=== PATIENT | female | born 1940 | race Caucasian/White ===

== ENCOUNTER → 2016-12-08 | Outpatient (CLI) | payer OTHER ==
[~2016-12-08] MED LIST: IOPAMIDOL (ISOVUE-300) 50 ML VIAL IV ONE
--- NOTE | 2016-12-08 12:01 | CT ---
CT Scan of the Abdomen (With Contrast) 1123 hours History: Intermittent right upper quadrant discomfort. Elevated lipase. Possible pancreatitis. Technique: Axial computed tomographic images of the abdomen were obtained with the uneventful intrave nous administration of 80 mL Isovue-300 contrast. Images were reviewed in multiple planes. Dose reduc tion techniques were utilized. Comparison prior CT study of August 29, 2014. CT Abdomen Findings: Lung bases: Fibrotic band or subsegmental atelectasis is noted in the right middle lobe and lingula. The lung bases are otherwise clear. Liver: Normal. Spleen: Normal. Gallbladder and Bile Ducts: There is some distention of the bile duct measuring 11 mm at the level o f the jose and tapering to 6 mm at the pancreatic head level. Mild intrahepatic biliary ductal dilat ation is also evident. There are no radiopaque gallstones identified or pericholecystic fluid. There is no evidence of gallstone in the distal common bile duct. Pancreas: The pancreas has a normal contour without evidence of solid or cystic mass. There is no galaviz creatic ductal dilatation or peripancreatic inflammatory change. Adrenals: Normal. Kidneys: No obstruction or solid masses. There is stable 8 mm cyst mid right kidney posterior lateral ly. No renal calculus is seen. The ureters are normal in course and caliber to the level of the upper pelvis. Abdominal Aorta: Mild scattered calcified plaques are seen associated with the abdominal aorta withou t aneurysm. Bowel Loops: There is some thickening associated with the gastric antrum without evidence of focal u lceration. Bowel loops otherwise appear to be normal. There is also probable duodenal diverticulum ad jacent to the pancreatic head.. No bowel obstruction, ascites, or significant retroperitoneal lymphadenopathy. Skeletal system: Vertebral body heights are well-maintained. There are no significant lytic or scler otic osseous lesions. There is mild disk bulge at L4-L5 along with ligamentum flavum hypertrophy and facet hypertrophy contributes to moderate spinal stenosis and bilateral neural foraminal stenosis. Impression: 1. Mild increase in distention of the intra and extrahepatic bile ducts since the prior study. No def initive mass is seen at the pancreatic head level and there is no pancreatic ductal dilatation. Rule out distal common bile duct stricture. If indicated, consider correlation with right upper quadrant u ltrasound or ERCP. 2. Fibrotic bands at the lung bases. 3. Incidental subcentimeter cyst mid right kidney. 4. Mild thickening of the gastric antrum. This is more than on the prior study. A focal ulcer is not delineated. While this could just be related to poor distention and peristalsis, the possibility of u nderlying gastritis cannot be excluded. 5. Duodenal diverticulum adjacent to the pancreatic head and distal common bile duct. 6. Disk bulge with ligamentum flavum hypertrophy and facet hypertrophy at L4-L5 and subsequent spinal and neuroforaminal stenoses. These findings were discussed by telephone with Dr. Zenaida Aldana at 1155 hrs.
== END ==
LOC: CIMAGING 11:01
PROVIDERS: ATTEND Internal Medicine
DX: K57.10 Diverticulosis of small intestine without perforation or abscess without bleeding (principal); N28.1 Cyst of kidney, acquired; M51.86 Other intervertebral disc disorders, lumbar region; M46.96 Unspecified inflammatory spondylopathy, lumbar region
CPT/HCPCS: 74160; Q9967

== ENCOUNTER → 2016-12-15 | Outpatient (CLI) | payer OTHER ==
--- NOTE | 2016-12-15 08:56 | US ---
Sonogram of the Abdomen 0755 hours Clinical Indications: Right upper quadrant pain. Comparison: December 08, 2016. Findings: The visualized pancreas is within normal limits. There is no pancreatic ductal dilatation. There is common bile duct dilation to 1.1 cm. It measures 0.7 cm at the pancreatic head with no ston e or mass identified. The gallbladder is unremarkable. The gallbladder wall measures 1.9 mm. Liver is normal in size and morphology with mild increased echogenicity. The aorta tapers normally from 25 to 15 mm. The right kidney measures 4.3 x 4.7 x 8.4 cm with a 2.6 cm cortex and is grossly unremarkable. An inc idental 1.0 x 0.8 x 0.9 cm cyst is noted. Left kidney measures 4.1 x 4.6 x 9.1 cm with a 2.2 cm cortex. The spleen is unremarkable and measures 7.8 x 4.0 x 7.3 cm. Impression: 1. Nonspecific dilation of the common bile duct. No mass identified. This is similar to the CT examin ation from 7 days prior. If pain persists, HIDA scan may be helpful to evaluate gallbladder function. 2. Mild increase in echogenicity of the liver suggests fatty infiltration.
== END ==
LOC: BMCIMAGING 07:48
PROVIDERS: ATTEND Internal Medicine
DX: R93.2 Abnormal findings on diagnostic imaging of liver and biliary tract (principal)

== ENCOUNTER → 2017-01-08 | Outpatient (CLI) | payer OTHER ==
--- NOTE | 2017-01-08 14:51 | MR ---
MRI Abdomen Without Contrast, MR Cholangiopancreatography Clinical Indications: Right upper quadrant pain. Elevated lipase. Dilated common bile duct. Comparison: Ultrasound November [address] November 2016. Technique: Coronal and axial anatomic images were obtained with standard imaging sequences without c ontrast. Heavily T2-weighted images were obtained axially and coronally through the biliary ducts. T hree-dimensional and multiplanar reconstructions were manipulated by the radiologist and reviewed at the computer. Findings: The common bile duct is diffusely dilated at 10 mm. There is no evidence for stricture or irregularity. No evidence for filling defect to indicate choledochal stone. Gallbladder is unremarkab le. Intrahepatic biliary ducts are unremarkable. Pancreatic duct is unremarkable. Limited anatomic images demonstrate no evidence for liver lesion. Pancreas is unremarkable. Spleen is unremarkable. Small renal cortical cyst is seen in the mid pole right kidney and probably a couple t iny renal cortical cysts in the left kidney. No evidence for hydronephrosis. Impression: Nonspecific dilatation of the common bile duct. No evidence for stricture, irregularity, or evidence for choledochal stone.
== END ==
LOC: FIMAGING 07:11
PROVIDERS: ATTEND Physician Assistant
DX: R10.11 Right upper quadrant pain (principal); K83.8 Other specified diseases of biliary tract

== ENCOUNTER → 2017-03-18 | Outpatient (CLI) | payer OTHER | LOC: BMCIMAGING 08:36 | PROVIDERS: ATTEND Family Medicine | DX: S22.41XA Multiple fractures of ribs, right side, initial encounter for closed fracture (principal); M25.511 Pain in right shoulder ==

== ENCOUNTER → 2017-08-05 | Outpatient (CLI) | payer OTHER | LOC: BHFA 16:00 | PROVIDERS: ATTEND Internal Medicine Cardiovascular Disease | DX: I47.1 Supraventricular tachycardia (principal) ==

== ENCOUNTER → 2017-09-03 | Outpatient (CLI) | payer OTHER | LOC: BMCIMAGING 13:43 | PROVIDERS: ATTEND Internal Medicine Hematology & Oncology | DX: Z13.820 Encounter for screening for osteoporosis (principal); M85.80 Other specified disorders of bone density and structure, unspecified site ==

== ENCOUNTER → 2017-09-10 | Outpatient (CLI) | payer OTHER | LOC: BMCIMAGING 14:43 | PROVIDERS: ATTEND Family Medicine | DX: S52.572A Other intraarticular fracture of lower end of left radius, initial encounter for closed fracture (principal) ==

== ENCOUNTER → 2017-09-16 | Outpatient (CLI) | payer OTHER | LOC: BMCIMAGING 14:01 | PROVIDERS: ATTEND Orthopaedic Surgery Hand Surgery | DX: S52.572D Other intraarticular fracture of lower end of left radius, subsequent encounter for closed fracture with routine healing (principal) ==

== ENCOUNTER → 2017-09-29 | Outpatient (CLI) | payer OTHER | LOC: BMCIMAGING 08:39 | PROVIDERS: ATTEND Orthopaedic Surgery Hand Surgery | DX: S52.532A Colles' fracture of left radius, initial encounter for closed fracture (principal) ==

== ENCOUNTER → 2017-10-02 | Day surgery (SDC) | payer OTHER ==
[~2017-10-02] MED LIST changes: +BUPIVACAINE 0.5% 30 ML SDV ONE; +HYDROmorphONE/DILAUDID 1 MG/ML INJ IVP PRN; +HYDROmorphONE/DILAUDID 1 MG/ML INJ ONE; -IOPAMIDOL (ISOVUE-300) 50 ML VIAL IV ONE; +LIDOCAINE 1% 2 ML INJ ID PRN; +LR 1,000 ML IV ONE; +MIDAZOLAM 2 MG/2 ML VIAL IVP ONE; +NALOXONE HCL 0.4 MG/ML INJ IVP PRN; +ONDANSETRON 4 MG/2 ML VIAL IVP PRN; +ONDANSETRON DISINTEGRATING 4 MG TAB PO PRN; +OXYCODONE/APAP 5/325 TAB ONE; +OXYCODONE/APAP 5/325 TAB PO PRN; +PROPOFOL 200 MG/20 ML VIAL ONE; +PROPOFOL/EMULSION 500 MG/50 ML BOTTLE IV ONE; +fentaNYL 100 MCG/2 ML INJ IVP PRN; +fentaNYL 100 MCG/2 ML INJ ONE
--- NOTE | 2017-10-02 12:12 | PDANEPAE ---
ANE History of Present Illness 76 yo for orif wrist ANE Past Medical History - Cardiovascular History Hx Hypertension: Yes Hx Arrhythmias: Yes Hx Chest Pain: No Hx Coronary Artery / Peripheral Vascular Disease: No Hx CHF / Valvular Disease: No Hx Palpitations: No Cardiovascular History Comment: pcp monitors bp. 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 SVT EPISODES - SEES DR FORTE. TAKING BETA JAMI - NO EPISODES SINCE JUN 2017 - Pulmonary History Hx COPD: No Hx Asthma/Reactive Airway Disease: No Hx Recent Upper Respiratory Infection: No Hx Oxygen in Use at Home: No Hx Sleep Apnea: No Sleep Apnea Screening Result - Last Documented: Negative - Neurologic History Hx Cerebrovascular Accident: No Hx Seizures: No Hx Dementia: No - Endocrine History Hx Diabetes: No - Renal History Hx Renal Disorders: No - Liver History Hx Hepatic Disorders: No - Neurological & Psychiatric Hx Hx Neurological and Psychiatric Disorders: No - Cancer History Hx Cancer: Yes Cancer History Comment: current breast ca- right breast. MASTECTOMY ALICE - Congenital Disorder History Hx Congenital Disorders: No - GI History Hx Gastrointestinal Disorders: Yes Gastrointestinal History Comment: occassional reflux when taking nsaids - Other Health History Other Health History: none - Chronic Pain History Chronic Pain: Yes (middle back pain from fall) - Surgical History Prior Surgeries: 12/2014 MASTECTOMY ANE Review of Systems Review of Systems: - Exercise capacity METS (RN): 4 METS ANE Patient History - Allergies Allergies/Adverse Reactions: venom-honey bee [bee venom (honey bee)] Allergy (Verified 12/05/14 13:29) - Home Medications Home medications: home medication list seen and reviewed Home Medications: Losartan/Hydrochlorothiazide [Hyzaar 100-25 Tablet] 1 each PO DAILY 01/11/15 [ Last Taken 01/11/15 07:00] - NPO status NPO Status: no food or drink >8 hours NPO Since - Liquids (Date): 10/02/17 NPO Since - Liquids (Time): 07:45 NPO Since - Solids (Date): 10/01/17 NPO Since - Solids (Time): 22:30 - Anes Hx Anes Hx: slow to awaken from anesthesia - Smoking Hx Smoking Status: Never smoked - Family Anes Hx Family Hx Anesthesia Complications: none ANE Labs/Vital Signs - Vital Signs Blood Pressure: 183/93 Heart Rate: 65 Respiratory Rate: 18 O2 Sat (%): 97 Height: 5 ft 6 in Weight: 48.534 kg ANE Physical Exam - Airway Neck exam: FROM Mallampati Score: Class 2 Mouth exam: normal dental/mouth exam - Pulmonary Pulmonary: no respiratory distress - Cardiovascular Cardiovascular: regular rate and rhythym - ASA Status ASA Status: II ANE Anesthesia Plan Anesthesia Plan: GA w LMA
--- NOTE | 2017-10-02 12:26 | PDHPUP ---
History & Physical Update H&P update statement: This history and physical update is based on an assessment of the patient which was completed after admission or registration (within 24 hours), but prior to the surgery/procedure. H&P update: H&P reviewed & patient examined, no change in patient's condition since H&P completed
[2017-10-02 15:30] VITALS: TEMP 97
[2017-10-02 16:25] VITALS: PULSE 63; RESP 16
--- NOTE | 2017-10-02 17:10 | POSTANESTH ---
Post Anesthetic Evaluation Cardiovascular Status: Normal, Stable Respiratory Status: Normal, Stable Level of Consciousness/Mental Status: Can Participate in Eval Pain Control: Adequate, Prn Tx Ordered Nausea/Vomiting Control: Adequate, Prn Tx Ordered Complications Possibly Related to Anesthesia: None Noted
[2017-10-02 17:15] VITALS: BP 132/96; O2SAT 91
--- NOTE | 2017-10-04 19:02 | GOP ---
[f rep st] OPERATIVE REPORT DATE OF OPERATION: 10/04/2017 SURGEON: Amado Paulson MD ANESTHESIA: General. PREOPERATIVE DIAGNOSIS: Left distal radius fracture, two-part intraarticular fracture. POSTOPERATIVE DIAGNOSIS: Left distal radius fracture, two-part intraarticular fracture. PROCEDURE PERFORMED: Open reduction and internal fixation of left distal radius fracture intraarticu lar, two-part (Synthes variable angle distal radius place, 6-hole head, 3-hole shaft). FINDINGS: INDICATIONS: This patient is a 76-year-old female who sustained a distal radius fracture 3 weeks presley or to the surgery secondary to a fall on her outstretched hand from ground level. The patient was se en the same day as her fall after presenting to Urgent Care, and was reduced and placed in a __ splint to maintain reduction. At the time, a good reduction was obtained. She was followed in [facility] office at her second appointment. X-ray was taken in the cast, which showed collapse of the fractu re with about a centimeter of shortening and volar angulation. Because of this level of shortening, open reduction and internal fixation was indicated. I discussed with the patient. Clinically, her wrist was feeling much better with minimal pain. Richard browne, I discussed with her that with this level of shortening, the wrist functioning would be compromi sed. I discussed the risks and benefits of operative treatment. The risks include pain, bleeding, i nfection, damage to surrounding structures, scarring, late tendon rupture, need for further plate rem oval, nonunion, need for further surgery, stiffness. She understood the risks and wished to proceed. DESCRIPTION OF PROCEDURE: The patient was seen in the preoperative area and consents were signed. T he surgical site was marked. She was given the opportunity to ask any questions. All her questions were answered. She was then taken to the operative suite. Care was taken to transfer from the [facility] to the operating room table. Care was taken to pad all bony prominences prior to induction of anes thesia. General anesthesia was given by the Anesthesia team. A timeout was called, including surgic al and anesthesia teams, confirming the surgical site and procedure to be performed. A gram of Ancef was given prior to incision. The left upper extremity was prepped and draped in the usual sterile f ashion. An Esmarch was used to exsanguinate the left upper extremity. The tourniquet was inflated t o 250 mmHg. An incision for a standard modified Valentin approach to the distal radius was performed. The standard approach was performed, incising the CR sheath and the antebrachial fascia, retracting the FPL ulnarl y, then incising the pronator quadratus elevating subperiosteally over the fracture. The fracture wa s identified. It was seen to be collapsed, as described above. As it was 3 weeks old, the fracture was already beginning to heal with some early callus and organized hematoma seen. She was also quite osteoporotic. A Onaway was used to free up the fracture. We elevated on all sides and irrigated. We were able to f ully disimpact the fracture and free it up. We then used allograft and bone chips to begin to regain length. We did this slowly and sequentially, distracting the fracture and adding allograft bone so we had regained anatomic radial height and we were able to maintain a good forward tilt. Reduction w as held with a K wire. The above mentioned plate was chosen to take the position of our plate. Unde r fluoroscopy, a proximal shaft screw was placed. We then began placing the distal locking screws, t aking care to ensure that we were below the articular surface. This was confirmed with fluoroscopy. We also took care to assure that they were not entering the dorsal cortex. In the most distal screw , pegs were placed to prevent any extensor tendon irritation should they be long. Although again, ca re was taken to ensure that they were as short as the dorsal cortex. The proximal locking screws wer e then placed. X-rays were taken, which showed anatomical reduction. The patient had good range of motion. There was no crepitus. The tourniquet was let down. Bleeding was controlled. Two-0 Vicryl was used to close the distal por tion of the pronator tendon over the plate to prevent tendon irritation. The wound was then closed i n layers. A sterile dressing was applied. The patient was placed in a splint, awakened from general anesthesia and taken to the PACU in stable condition. Of note, intraoperatively, we tested the stability of the DRUJ. The DRUJ remained stable. Postoperative condition stable. PLAN: The patient will follow up in about 10 days for a wound check and will transition over to a nv st. /[id number]/MODL
== END | disposition home or self-care (01) ==
LOC: FSGY 11:05
PROVIDERS: ATTEND Orthopaedic Surgery Hand Surgery
PROC: 0PSJ04Z Reposition Left Radius with Internal Fixation Device, Open Approach (ICD-10-PCS; principal; 2017-10-02 12:30)
DX: S52.532A Colles' fracture of left radius, initial encounter for closed fracture (principal); W19.XXXA Unspecified fall, initial encounter; I47.1 Supraventricular tachycardia; M81.0 Age-related osteoporosis without current pathological fracture; Z85.3 Personal history of malignant neoplasm of breast; Z90.11 Acquired absence of right breast and nipple
CPT/HCPCS: C1713; C1762; J0690; J1170; J2250; J2704; J3010

== ENCOUNTER → 2017-10-15 | Outpatient (CLI) | payer OTHER | LOC: BMCIMAGING 13:02 | PROVIDERS: ATTEND Orthopaedic Surgery Hand Surgery | DX: S52.502D Unspecified fracture of the lower end of left radius, subsequent encounter for closed fracture with routine healing (principal) ==

== ENCOUNTER → 2017-10-30 | Outpatient (CLI) | payer OTHER | LOC: BMCIMAGING 14:46 | PROVIDERS: ATTEND Orthopaedic Surgery Hand Surgery | DX: S52.502D Unspecified fracture of the lower end of left radius, subsequent encounter for closed fracture with routine healing (principal) ==

== ENCOUNTER → 2017-11-10 | Outpatient (CLI) | payer OTHER | LOC: FIMAGING 08:22 | PROVIDERS: ATTEND Internal Medicine Hematology & Oncology | DX: Z12.31 Encounter for screening mammogram for malignant neoplasm of breast (principal); Z90.11 Acquired absence of right breast and nipple; Z85.3 Personal history of malignant neoplasm of breast; Z80.3 Family history of malignant neoplasm of breast | CPT/HCPCS: G0202-52 ==

== ENCOUNTER → 2017-11-19 | Outpatient (CLI) | payer OTHER | LOC: BMCIMAGING 08:39 | PROVIDERS: ATTEND Orthopaedic Surgery Hand Surgery | DX: Z09 Encounter for follow-up examination after completed treatment for conditions other than malignant neoplasm (principal); S52.532D Colles' fracture of left radius, subsequent encounter for closed fracture with routine healing ==

== ENCOUNTER → 2018-03-21 | Outpatient (CLI) | payer OTHER | LOC: FIMAGING 07:53 | PROVIDERS: ATTEND Physician Assistant | DX: M51.34 Other intervertebral disc degeneration, thoracic region (principal) ==

== ENCOUNTER → 2018-05-05 | Outpatient (CLI) | payer OTHER | LOC: BMCIMAGING 11:30 | PROVIDERS: ATTEND Family Medicine | DX: S22.42XD Multiple fractures of ribs, left side, subsequent encounter for fracture with routine healing (principal) | CPT/HCPCS: 71101-PO ==

== ENCOUNTER 2018-05-14 07:21 | Emergency (ER) | payer OTHER ==
--- NOTE | 2018-05-14 08:35 | EDPHY ---
H & P Time Seen by Provider: 05/14/18 07:50 HPI/ROS: CHIEF COMPLAINT: No bowel movement and mid back pain HISTORY OF PRESENT ILLNESS: Patient is a 77-year-old female here with her with chief complaint of no bowel movement for the last week. She states that 9 days ago she tripped and fell backwards onto her left side. There was no head injury or loss of consciousness. There was no presyncopal prodrome with chest pain or shortness of breath. She does not recall hitting her abdomen. She was seen [facility] and had x-ray showing nondisplaced acute left lower rib fractures without pneumothorax. Personally reviewed these x-rays. Since then she has had persistent mid back pain which is bilateral but has not had a bowel movement and has not passed gas couple days. She has no prior history of surgery to her abdomen or bowel obstruction. She had a colonoscopy a couple years ago which was reportedly normal. This is done for screening purposes. She is able to eat and denies nausea and vomiting. She has tried MiraLax without relief of symptoms. REVIEW OF SYSTEMS: Constitutional: No fever, no chills. Eyes: No discharge. ENT: No sore throat. Cardiovascular: No chest pain, no palpitations. Respiratory: No cough, no shortness of breath. Gastrointestinal: + abdominal pain, no vomiting. Genitourinary: No hematuria. Musculoskeletal: No back pain. Skin: No rashes. Neurological: No headache. Smoking Status: Never smoked Physical Exam: General Appearance: Alert and no distress. Eyes: Pupils equal and round no injection. Respiratory: Chest is nontender, lungs are clear to auscultation. Cardiac: regular rate and rhythm. Gastrointestinal: Abdomen is soft and with mild tenderness to the left lower quadrant left upper quadrant, no masses, bowel sounds normal. Musculoskeletal: Neck is supple and nontender tenderness to mid back at CVA bilaterally without crepitus or ecchymosis. No midline lumbar spinal tenderness or step-offs. Extremities have full range of motion and are nontender. Skin: No rashes or lesions. Constitutional: Initial Vital Signs Temperature (C) 36.4 C 05/14/18 07:28 Heart Rate 70 05/14/18 07:28 Respiratory Rate 18 05/14/18 07:28 Blood Pressure 179/76 H 05/14/18 07:28 O2 Sat (%) 96 05/14/18 07:28 O2 Delivery Mode Room Air Allergies/Adverse Reactions: venom-honey bee [bee venom (honey bee)] Allergy (Verified 05/14/18 07:25) Home Medications: Medication Instructions Recorded Losartan/Hydrochlorothiazide 1 each PO DAILY 01/11/15 [Hyzaar 100-25 Tablet] Cozaar 05/14/18 Metoprolol Succinate 05/14/18 Prolia 05/14/18 Medical Decision Making - Diagnostics Imaging Results: Imaging Impressions Abdomen CT 05/14/18 08:04 Impression: 1. Moderate stool in the proximal colon without evidence of obstruction. 2. Stable biliary dilatation with no definite etiology. 3. Additional findings as above. Findings discussed with Iftikhar Machuca on 05/14/2018 at 9:36. ED Course/Re-evaluation: 77-year-old female a year without bowel movement for the last 6-7 days. She has a minimally tender abdomen and CT scan shows constipation without obstipation or obstruction. There is no free air or other signs of acute abdominal process. She is tolerating p.o. and appears nontoxic. She agrees to try senna in addition to MiraLax for constipation. Indication for return were discussed. - Data Points Laboratory Results: Laboratory Results 05/14/18 08:20 05/14/18 08:20 05/14/18 05/14/18 05/14/18 08:25 08:20 08:20 WBC 8.57 10^3/uL 10^3/uL (3.80-9.50) RBC 4.10 10^6/uL L 10^6/uL (4.18-5.33) Hgb 13.5 g/dL g/dL (12.6-16.3) POC Hgb 13.9 gm/dL gm/dL (12.6-16.3) Hct 39.9 % % (38.0-47.0) POC Hct 41 % % (38-47) MCV 97.3 fL fL (81.5-99.8) MCH 32.9 pg pg (27.9-34.1) MCHC 33.8 g/dL g/dL (32.4-36.7) RDW 12.0 % % (11.5-15.2) Plt Count 459 10^3/uL H 10^3/uL (150-400) POC Sodium 138 mEq/L mEq/L (135-145) Sodium 139 mEq/L mEq/L (135-145) POC Potassium 4.0 mEq/L mEq/L (3.3-5.0) Potassium 4.3 mEq/L mEq/L (3.3-5.0) POC Chloride 104 mEq/L mEq/L (97-110) Chloride 105 mEq/L mEq/L (97-110) Carbon Dioxide 21 mEq/l L mEq/l (22-31) Anion Gap 13 mEq/L mEq/L (8-16) POC BUN 11 mg/dL mg/dL (7-23) BUN 12 mg/dL mg/dL (7-23) Creatinine 0.7 mg/dL mg/dL (0.6-1.0) POC Creatinine 0.7 mg/dL mg/dL (0.6-1.0) Estimated GFR > 60 Glucose 83 mg/dL mg/dL (70-100) POC Glucose 88 mg/dL mg/dL (70-100) Calcium 9.4 mg/dL mg/dL (8.5-10.4) Point of Care Test Results: Chemistry 05/14/18 08:25 POC Sodium 138 mEq/L mEq/L (135-145) POC Potassium 4.0 mEq/L mEq/L (3.3-5.0) POC Chloride 104 mEq/L mEq/L (97-110) POC BUN 11 mg/dL mg/dL (7-23) POC Creatinine 0.7 mg/dL mg/dL (0.6-1.0) POC Glucose 88 mg/dL mg/dL (70-100) ISTAT H&H 05/14/18 08:25 POC Hgb 13.9 gm/dL gm/dL (12.6-16.3) POC Hct 41 % % (38-47) Departure - Departure Disposition: Home, Routine, Self-Care Clinical Impression: Constipation Condition: Good Instructions: Constipation (ED) Additional Instructions: Please try lidocaine patches for your rib and back pain. For constipation continue MiraLax daily and try adding senna daily until the abnormal bowel movements. Return to the ER follow up the primary care physician review of further issues with her bowel movements. Referrals: Zenaida Aldana MD [Primary Care Provider] - As per Instructions
[2018-05-14] MEDS ORDERED: IOPAMIDOL (ISOVUE-300) 100 ML BTL ONE (08:43)
[2018-05-14 10:04] VITALS: BP 190/102
== END 2018-05-14 10:03 | disposition home or self-care (01) ==
DX: K59.00 Constipation, unspecified (principal)
CPT/HCPCS: 74177; 99285; Q9967; 82435-PO; 82565-PO; 82947-PO; 84132-PO; 84295-PO; 84520-PO; 85014-PO

== ENCOUNTER → 2018-08-28 | Outpatient (CLI) | payer OTHER | LOC: FIMAGING 07:40 | PROVIDERS: ATTEND Physician Assistant | DX: M51.34 Other intervertebral disc degeneration, thoracic region (principal); M48.54XA Collapsed vertebra, not elsewhere classified, thoracic region, initial encounter for fracture; M48.061 Spinal stenosis, lumbar region without neurogenic claudication; M43.16 Spondylolisthesis, lumbar region; M51.26 Other intervertebral disc displacement, lumbar region ==

== ENCOUNTER → 2018-09-03 | Outpatient (CLI) | payer OTHER | LOC: BMCIMAGING 10:14 | PROVIDERS: ATTEND Internal Medicine Hematology & Oncology | DX: Z13.820 Encounter for screening for osteoporosis (principal); M85.89 Other specified disorders of bone density and structure, multiple sites ==

== ENCOUNTER → 2018-09-05 | Outpatient (CLI) | payer OTHER | LOC: FIMAGING 11:05 | DX: M48.54XA Collapsed vertebra, not elsewhere classified, thoracic region, initial encounter for fracture (principal); M48.04 Spinal stenosis, thoracic region; M51.34 Other intervertebral disc degeneration, thoracic region ==

== ENCOUNTER → 2018-09-27 | Outpatient (CLI) | payer OTHER ==
[~2018-09-27] MED LIST changes: -BUPIVACAINE 0.5% 30 ML SDV ONE; -HYDROmorphONE/DILAUDID 1 MG/ML INJ IVP PRN; -HYDROmorphONE/DILAUDID 1 MG/ML INJ ONE; +IOPAMIDOL (ISOVUE-300) 100 ML BTL ONE; -LIDOCAINE 1% 2 ML INJ ID PRN; -LR 1,000 ML IV ONE; -MIDAZOLAM 2 MG/2 ML VIAL IVP ONE; -NALOXONE HCL 0.4 MG/ML INJ IVP PRN; -ONDANSETRON 4 MG/2 ML VIAL IVP PRN; -ONDANSETRON DISINTEGRATING 4 MG TAB PO PRN; -OXYCODONE/APAP 5/325 TAB ONE; -OXYCODONE/APAP 5/325 TAB PO PRN; -PROPOFOL 200 MG/20 ML VIAL ONE; -PROPOFOL/EMULSION 500 MG/50 ML BOTTLE IV ONE; -fentaNYL 100 MCG/2 ML INJ IVP PRN; -fentaNYL 100 MCG/2 ML INJ ONE
== END ==
LOC: FIMAGING 12:20
PROVIDERS: ATTEND Internal Medicine
DX: K83.8 Other specified diseases of biliary tract (principal); K57.30 Diverticulosis of large intestine without perforation or abscess without bleeding
CPT/HCPCS: 74177; Q9967

== ENCOUNTER → 2018-10-30 | Outpatient (CLI) | payer OTHER | LOC: FIMAGING 15:11 | PROVIDERS: ATTEND Psychiatry & Neurology Neurology | DX: R26.89 Other abnormalities of gait and mobility (principal); J01.00 Acute maxillary sinusitis, unspecified ==

== ENCOUNTER → 2018-11-15 | Outpatient (CLI) | payer OTHER | LOC: FIMAGING 10:12 | PROVIDERS: ATTEND Internal Medicine Hematology & Oncology | DX: Z12.31 Encounter for screening mammogram for malignant neoplasm of breast (principal); Z85.3 Personal history of malignant neoplasm of breast; Z90.11 Acquired absence of right breast and nipple ==

== ENCOUNTER → 2018-11-18 | Outpatient (CLI) | payer OTHER ==
[~2018-11-18] MED LIST changes: +GADOBUTROL 10 ML VIAL IVP ONE; -IOPAMIDOL (ISOVUE-300) 100 ML BTL ONE
== END ==
LOC: FIMAGING 06:34
PROVIDERS: ATTEND Internal Medicine Gastroenterology
DX: K31.89 Other diseases of stomach and duodenum (principal)
CPT/HCPCS: 74183; A9585; 82565-PO

== ENCOUNTER → 2019-03-18 | Outpatient (CLI) | payer OTHER | LOC: FIMAGING 06:45 | PROVIDERS: ATTEND Internal Medicine Gastroenterology | DX: K31.89 Other diseases of stomach and duodenum (principal) | CPT/HCPCS: 74183; A9585; 82565-PO ==